=== PATIENT | female | born 1980 | race African-American/Black ===

== ENCOUNTER 2019-04-15 12:17 | Emergency (ER) | payer MEDICAID ==
[~2019-04-15] VITALS: Ht 180.3 cm; Wt 109.1 kg
[~2019-04-15 12:17] MED LIST: CEPH250C92 PO
[2019-04-15 12:57] LABS: BASOPHILS % (AUTO) 0.6 % (0-1); EOSINOPHILS # (AUTO) 0.1 X10'3 (0-0.9); EOSINOPHILS % (AUTO) 2.1 % (0-6); HEMATOCRIT 32.3 % (35.0-45.0); HEMOGLOBIN 10.6 g/dl (12.0-16.0); LYMPHOCYTES # (AUTO) 1.8 X10'3 (1.1-4.8); LYMPHOCYTES % (AUTO) 28.4 % (21-51); MEAN CORPUSCULAR HEMOGLOBIN 24.5 PG (27.0-31.0); MEAN CORPUSCULAR HGB CONC 32.7 g/dL (33.0-36.5); MEAN CORPUSCULAR VOLUME 74.9 FL (78-98); MEAN PLATELET VOLUME 6.8 FL (7.4-10.4); MONOCYTES # (AUTO) 0.5 X10'3 (0-0.9); MONOCYTES % (AUTO) 7.4 % (2-12); NEUTROPHILS # (AUTO) 3.9 X10'3 (1.8-7.7); NEUTROPHILS % (AUTO) 61.5 % (42-75); PLATELET COUNT 364 X10'3 (140-440); RED BLOOD COUNT 4.32 X10'6 (4.20-5.60); RED CELL DISTRIBUTION WIDTH 17.4 % (11.5-14.5); WHITE BLOOD COUNT 6.4 X10'3 (4.5-11.0)
[2019-04-15 13:08] LABS: ALANINE AMINOTRANSFERASE 31 U/L (12-78); ALBUMIN 3.4 G/DL (3.4-5.0); ALBUMIN/GLOBULIN RATIO 0.8 (1.1-1.5); ALKALINE PHOSPHATASE 58 IU/L (46-116); ANION GAP 9 (8-16); ASPARTATE AMINO TRANSFERASE 27 U/L (10-37); BILIRUBIN,TOTAL 0.4 MG/DL (0.1-1.0); BLOOD UREA NITROGEN 13 MG/DL (7-18); BUN/CREATININE RATIO 15.7 (6.6-38.0); CALCIUM 8.7 MG/DL (8.5-10.1); CHLORIDE 103 MMOL/L (99-107); CREATININE 0.83 MG/DL (0.40-0.90); GLUCOSE 108 MG/DL (70-104); POTASSIUM 3.3 MMOL/L (3.5-5.1); SODIUM 141 MMOL/L (135-145); TOTAL CARBON DIOXIDE 28.7 MMOL/L (24-32); TOTAL PROTEIN 7.6 G/DL (6.4-8.2); eGFR > 90 ML/MIN
--- NOTE | 2019-04-15 13:41 | NUR ---
relieving RN for break, pt is 39 yo female c/o chest pain, midsternal radiating to left shoulder off and on x"few weeks", +n/v, +SOB, pt was seen at [facility] and dx with enlarged heart 2weeks ago, pt said she does have increased stress in life with custody [place], waiting to be evaluated, report to [facility]
[2019-04-15 14:17] LABS: URINE HCG NEGATIVE (NEG)
[2019-04-15 14:21] LABS: CLARITY,URINE SLIGHTLY CLOUDY (Clear); COLOR,URINE YELLOW (Yellow); GLUCOSE, URINE NEGATIVE (Neg); KETONES,URINE NEGATIVE (Neg); LEUKOCYTE ESTERASE ,URINE NEGATIVE (Neg); NITRITES, URINE NEGATIVE (Neg); OCCULT BLOOD,URINE NEGATIVE (Neg); PROTEIN,URINE NEGATIVE (Neg)
[2019-04-15 14:22] LABS: UA COLLECTION TYPE CLN CATCH MIDSTREAM
[2019-04-15 14:28] LABS: AMORPHOUS URATES 1+; BACTERIA,URINE FEW /HPF (Neg); MUCUS STRANDS NONE SEEN /LPF (Neg); RBC,URINE NONE SEEN /HPF (0-2); SQUAMOUS EPITHELIAL CELL,UR FEW /LPF (FEW); WBC,URINE 0-4 /HPF (0-4)
[2019-04-15 14:44] VITALS: BP 112/56
== END 2019-04-15 14:47 | disposition home or self-care (01) ==
LOC: ER 12:17
DX: R07.89 Other chest pain (principal); R06.02 Shortness of breath; F17.200 Nicotine dependence, unspecified, uncomplicated; F15.90 Other stimulant use, unspecified, uncomplicated; Z90.49 Acquired absence of other specified parts of digestive tract; Z88.6 Allergy status to analgesic agent; Z79.899 Other long term (current) drug therapy
CPT/HCPCS: 36415; 71046; 80053; 81001; 81025; 83880; 84484; 85025; 93005; 99284

== ENCOUNTER 2020-02-06 02:42 | Emergency (ER) | payer MEDICAID ==
[~2020-02-06] VITALS: Ht 180.3 cm; Wt 110.0 kg
[2020-02-06 03:21] LABS: CLARITY,URINE SLIGHTLY CLOUDY (Clear); COLOR,URINE YELLOW (Yellow); GLUCOSE, URINE NEGATIVE (Neg); KETONES,URINE NEGATIVE (Neg); LEUKOCYTE ESTERASE ,URINE SMALL (Neg); NITRITES, URINE POSITIVE (Neg); OCCULT BLOOD,URINE SMALL (Neg); PROTEIN,URINE TRACE mg/dl (Neg)
[2020-02-06 03:23] LABS: UA COLLECTION TYPE CLN CATCH MIDSTREAM; URINE HCG NEGATIVE (NEG)
[2020-02-06] MEDS ORDERED: AMOX-422 PO (03:53)
[2020-02-06] MEDS ORDERED: amox tr/potassium clavulanate 875/125mg TAB PO ONE (03:55)
[2020-02-06 04:01] LABS: SQUAMOUS EPITHELIAL CELL,UR FEW /LPF (FEW)
[2020-02-06 04:02] LABS: BACTERIA,URINE 4+ /HPF (Neg); WBC,URINE 30-50 /HPF (0-4)
[2020-02-06 04:03] LABS: MUCUS STRANDS MODERATE /LPF (Neg)
[2020-02-06 04:11] VITALS: BP 133/87
== END 2020-02-06 04:19 | disposition home or self-care (01) ==
LOC: ER 02:42
DX: N61.0 Mastitis without abscess (principal); N39.0 Urinary tract infection, site not specified; F17.200 Nicotine dependence, unspecified, uncomplicated; F12.90 Cannabis use, unspecified, uncomplicated; Z90.49 Acquired absence of other specified parts of digestive tract; Z88.6 Allergy status to analgesic agent; Z79.899 Other long term (current) drug therapy
CPT/HCPCS: 81001; 81025; 87077; 87088; 87186; 99283

== ENCOUNTER 2020-02-14 16:48 | Emergency (ER) | payer MEDICAID ==
[~2020-02-14] VITALS: Ht 180.3 cm; Wt 111.3 kg
[~2020-02-14 16:48] MED LIST changes: +AMOX-422 PO
[2020-02-14 16:58] VITALS: BP 133/84
[2020-02-14] MEDS ORDERED: LACT1CAP65 PO (18:28)
[2020-02-14] MEDS ORDERED: CLIN-97 PO (18:28)
[2020-02-14] MEDS ORDERED: HYDR-4383 PO (18:31)
== END 2020-02-14 18:48 | disposition home or self-care (01) ==
LOC: ER 16:48
DX: N61.0 Mastitis without abscess (principal); F12.90 Cannabis use, unspecified, uncomplicated; Z90.49 Acquired absence of other specified parts of digestive tract; Z88.6 Allergy status to analgesic agent; Z79.2 Long term (current) use of antibiotics; Z79.899 Other long term (current) drug therapy
CPT/HCPCS: 99283; 99284

== ENCOUNTER 2020-09-20 20:05 | Emergency (ER) | payer MEDICAID ==
[~2020-09-20] VITALS: Ht 180.3 cm; Wt 109.0 kg
[~2020-09-20 20:05] MED LIST changes: -AMOX-422 PO; +CLIN-97 PO; +HYDR-4383 PO; +LACT1CAP65 PO
[2020-09-20] MEDS ORDERED: CefTRIAXone 1000mg IM Kit (w/lidocaine diluent) IM STA (20:31)
[2020-09-20] MEDS ORDERED: normal saline 1000ML IV soln IVB ONE (20:35)
[2020-09-20] MEDS ORDERED: azithromycin 250mg tablet PO ONE (20:35)
[2020-09-20] MEDS ORDERED: metroNIDAZOLE 500mg tablet PO ONE (20:35)
[2020-09-20 21:17] LABS: BASOPHILS % (AUTO) 0.2 % (0-1); EOSINOPHILS # (AUTO) 0.2 X10'3 (0-0.9); EOSINOPHILS % (AUTO) 1.1 % (0-6); HEMATOCRIT 31.3 % (35.0-45.0); LYMPHOCYTES # (AUTO) 1.8 X10'3 (1.1-4.8); LYMPHOCYTES % (AUTO) 12.4 % (21-51); MEAN CORPUSCULAR HEMOGLOBIN 23.8 PG (27.0-31.0); MEAN CORPUSCULAR VOLUME 74.5 FL (78-98); MEAN PLATELET VOLUME 6.9 FL (7.4-10.4); MONOCYTES # (AUTO) 1.2 X10'3 (0-0.9); MONOCYTES % (AUTO) 8.2 % (2-12); NEUTROPHILS # (AUTO) 11.3 X10'3 (1.8-7.7); NEUTROPHILS % (AUTO) 78.1 % (42-75); PLATELET COUNT 373 X10'3 (140-440); RED CELL DISTRIBUTION WIDTH 18.5 % (11.5-14.5); WHITE BLOOD COUNT 14.4 X10'3 (4.5-11.0)
[2020-09-20 21:21] LABS: ALANINE AMINOTRANSFERASE 17 U/L (12-78); ALBUMIN 2.9 G/DL (3.4-5.0); ALBUMIN/GLOBULIN RATIO 0.6 (1.1-1.5); ALKALINE PHOSPHATASE 82 IU/L (46-116); ANION GAP 10 (8-16); ASPARTATE AMINO TRANSFERASE 13 U/L (10-37); BILIRUBIN,TOTAL 0.2 MG/DL (0.1-1.0); BLOOD UREA NITROGEN 8 MG/DL (7-18); BUN/CREATININE RATIO 10.4 (6.6-38.0); CALCIUM 8.3 MG/DL (8.5-10.1); CHLORIDE 103 MMOL/L (99-107); CREATININE 0.77 MG/DL (0.40-0.90); GLUCOSE 105 MG/DL (70-104); LIPASE 96 U/L (73-393); POTASSIUM 3.5 MMOL/L (3.5-5.1); SODIUM 141 MMOL/L (135-145); TOTAL CARBON DIOXIDE 28.2 MMOL/L (24-32); TOTAL PROTEIN 7.4 G/DL (6.4-8.2); eGFR > 90 ML/MIN
[2020-09-20] MEDS ORDERED: PENICILLIN G BENZATHINE 2,400,000 UNIT/4 ML SYRINGE IM STA (21:29)
[2020-09-20] MEDS ORDERED: ibuprofen 200mg tablet PO ONE (21:30)
[2020-09-20 22:29] LABS: CLARITY,URINE SLIGHTLY CLOUDY (Clear); COLOR,URINE YELLOW (Yellow); GLUCOSE, URINE NEGATIVE (Neg); KETONES,URINE NEGATIVE (Neg); LEUKOCYTE ESTERASE ,URINE NEGATIVE (Neg); OCCULT BLOOD,URINE TRACE-INTACT (Neg); PROTEIN,URINE NEGATIVE (Neg); UROBILINOGEN,URINE 0.2 E.U/dL (0.2-1.0)
[2020-09-20 22:31] LABS: URINE HCG NEGATIVE (NEG)
[2020-09-20 22:35] LABS: UA COLLECTION TYPE VOIDED
[2020-09-20 22:36] LABS: NITRITES, URINE POSITIVE (Neg)
[2020-09-20 22:37] LABS: BACTERIA,URINE 2+ /HPF (Neg); RBC,URINE 0-2 /HPF (0-2); SQUAMOUS EPITHELIAL CELL,UR FEW /LPF (FEW); WBC,URINE 0-4 /HPF (0-4)
[2020-09-20] MEDS ORDERED: LACT1CAP74 PO (22:46)
[2020-09-20] MEDS ORDERED: CEFD300C3 PO (22:46)
[2020-09-20 23:05] VITALS: BP 132/81
== END 2020-09-20 22:55 | disposition home or self-care (01) ==
LOC: ER 20:05
DX: J02.8 Acute pharyngitis due to other specified organisms (principal); N39.0 Urinary tract infection, site not specified; R30.0 Dysuria; R31.9 Hematuria, unspecified; M54.5 Low back pain; F12.90 Cannabis use, unspecified, uncomplicated; Z87.440 Personal history of urinary (tract) infections; Z90.49 Acquired absence of other specified parts of digestive tract; Z88.8 Allergy status to other drugs, medicaments and biological substances; Z79.2 Long term (current) use of antibiotics; Z79.899 Other long term (current) drug therapy
CPT/HCPCS: 36415; 71045; 80053; 81001; 81025; 83690; 85025; 87077; 87088; 87186; 87491; 87591; 93005; 96360; 96372; 99285; J0561; J0696; J7030; J3490

== ENCOUNTER 2021-12-08 23:13 | Emergency (ER) | payer MEDICAID ==
[~2021-12-08] VITALS: Ht 177.8 cm; Wt 109.1 kg
[~2021-12-08 23:13] MED LIST changes: +LACT1CAP74 PO
[2021-12-08 23:35] VITALS: BP 131/77
[2021-12-09 00:08] LABS: CLARITY,URINE CLEAR (Clear); COLOR,URINE YELLOW (Yellow); GLUCOSE, URINE NEGATIVE (Neg); KETONES,URINE NEGATIVE (Neg); LEUKOCYTE ESTERASE ,URINE NEGATIVE (Neg); NITRITES, URINE NEGATIVE (Neg); OCCULT BLOOD,URINE NEGATIVE (Neg); PROTEIN,URINE TRACE mg/dl (Neg); URINE HCG NEGATIVE (NEG)
[2021-12-09 00:31] LABS: UA COLLECTION TYPE CLN CATCH MIDSTREAM
[2021-12-09 00:32] LABS: BACTERIA,URINE FEW /HPF (Neg); MUCUS STRANDS MANY /LPF (Neg); RBC,URINE 0-2 /HPF (0-2); SQUAMOUS EPITHELIAL CELL,UR MANY /LPF (FEW); WBC,URINE NONE SEEN /HPF (0-4)
[2021-12-09] MEDS ORDERED: metroNIDAZOLE 500mg tablet PO ONE (01:00)
[2021-12-09] MEDS ORDERED: cephalexin 250mg capsule PO ONE (01:00)
--- NOTE | 2021-12-09 01:23 | NUR ---
blood sent to lab
[2021-12-09 01:33] LABS: BASOPHILS % (AUTO) 0.1 % (0-1); EOSINOPHILS % (AUTO) 0.4 % (0-6); HEMATOCRIT 28.9 % (35.0-45.0); HEMOGLOBIN 9.7 g/dl (12.0-16.0); LYMPHOCYTES # (AUTO) 1.1 X10'3 (1.1-4.8); LYMPHOCYTES % (AUTO) 20.4 % (21-51); MEAN CORPUSCULAR HEMOGLOBIN 29.2 PG (27.0-31.0); MEAN CORPUSCULAR HGB CONC 33.5 g/dL (33.0-36.5); MEAN CORPUSCULAR VOLUME 87.1 FL (78-98); MEAN PLATELET VOLUME 8.1 FL (7.4-10.4); MONOCYTES # (AUTO) 1.1 X10'3 (0-0.9); MONOCYTES % (AUTO) 19.9 % (2-12); NEUTROPHILS # (AUTO) 3.3 X10'3 (1.8-7.7); NEUTROPHILS % (AUTO) 59.2 % (42-75); PLATELET COUNT 226 X10'3 (140-440); RED BLOOD COUNT 3.31 X10'6 (4.20-5.60); RED CELL DISTRIBUTION WIDTH 22.4 % (11.5-14.5); WHITE BLOOD COUNT 5.6 X10'3 (4.5-11.0)
--- NOTE | 2021-12-09 01:50 | NUR ---
po meds x2 given
[2021-12-09 01:57] LABS: NUCLEATED RED BLOOD CELLS 1 /100WBC (0-0); PLATELET ESTIMATE NORMAL; TOTAL CELLS COUNTED 100
[2021-12-09 01:58] LABS: ANISOCYTOSIS 3+; ELLIPTOCYTES 2+; HYPOCHROMASIA 1+
[2021-12-09 02:08] LABS: ALBUMIN 3.6 G/DL (3.4-5.0); ANION GAP 11 (8-16); BETA HCG,QUANTITATIVE < 1.0 mIU/ml; BLOOD UREA NITROGEN 12 MG/DL (7-18); BUN/CREATININE RATIO 15.8 (6.6-38.0); CALCIUM 9.1 MG/DL (8.5-10.1); CHLORIDE 104 MMOL/L (99-107); CREATININE 0.76 MG/DL (0.40-0.90); GLUCOSE 79 MG/DL (70-104); POTASSIUM 3.2 MMOL/L (3.5-5.1); SODIUM 143 MMOL/L (135-145); TOTAL CARBON DIOXIDE 27.9 MMOL/L (24-32); eGFR > 90 ML/MIN
[2021-12-09] MEDS ORDERED: sulfamethoxazole/trimethoprim DS (800/160mg) tablet PO ONE (02:45)
[2021-12-09] MEDS ORDERED: CEPH-585 PO (02:46)
[2021-12-09] MEDS ORDERED: SULF1TAB49 PO (02:46)
[2021-12-09] MEDS ORDERED: METR-159 PO (02:46)
--- NOTE | 2021-12-09 02:49 | NUR ---
po med given
== END 2021-12-09 03:08 | disposition home or self-care (01) ==
LOC: ER 23:14
DX: L02.818 Cutaneous abscess of other sites (principal); N76.0 Acute vaginitis; C50.919 Malignant neoplasm of unspecified site of unspecified female breast; F12.10 Cannabis abuse, uncomplicated; Z87.448 Personal history of other diseases of urinary system; Z79.899 Other long term (current) drug therapy; Z79.82 Long term (current) use of aspirin; Z88.6 Allergy status to analgesic agent; Z79.2 Long term (current) use of antibiotics
CPT/HCPCS: 36415; 80048; 81001; 81003; 81025; 84702; 85007; 85025; 99284